=== PATIENT | male | born 1955 | race Caucasian/White ===

== ENCOUNTER 2018-04-13 09:42 | Emergency (ER) | payer OTHER ==
[~2018-04-13 09:42] MED LIST: CIP500 PO; HYDR473S4 PO; KET10 PO; NO RTN MEDS; PER PO
--- NOTE | 2018-04-13 09:44 | ER Report ---
History and Physical Time Seen By MD: 09:43 HPI/ROS CHIEF COMPLAINT: Right-sided abdominal and flank pain HISTORY OF PRESENT ILLNESS: Patient is a 62-year-old male who denies any significant past medical history other than multiple orthopedic surgeries. States that around midnight last night he was awakened from sleep with severe right-sided flank pain which would radiate to the right lower quadrant he states that movement seems to make the symptoms worse. He denies any nausea with onset of pain and nausea currently. He denies any fevers or chills. He states the pain severity currently is 8 out of 10 in intensity. It is made worse with motion better at rest. That there is any waxing or waning component to the pain but rather it is just constant. Patient denies any prior abdominal surgeries. He states that he normally sleeps in a lazy boy chair at nighttime because of chronic back pain and shoulder pain. He denies ever having similar episodes in the past. REVIEW OF SYSTEMS: Constitutional: No fever, no chills. Eyes: No discharge. ENT: No sore throat. Cardiovascular: No chest pain, no palpitations. Respiratory: No cough, no shortness of breath. Gastrointestinal: Right-sided flank and abdominal pain, no nausea no vomiting or diarrhea. Genitourinary: No hematuria. Musculoskeletal: No back pain. Skin: No rashes. Neurological: No headache. Allergies: Coded Allergies: erythromycin base (Verified Allergy, Mild, 07/25/14) Home Meds Active Scripts Hydrocodone Bit/Acetaminophen (HYDROCODON-ACETAMINOPHEN 5-325) 1 Each Tablet, 1 EACH PO Q4-6H Y for PAIN, #8 TAB 0 Refills TAKE ONE TABLET BY MOUTH EVERY 4-6 HOURS NEEDED FOR PAIN Prov:GONZALEZ CANSECO MD 04/13/18 Discontinued Reported Medications [No Rtn Meds] No Conflict Check, 0 Refills 03/12/10 Past Medical/Surgical History Patient reports multiple orthopedic surgeries but denies any medical history. Denies any chronic prescription medications. Hx Smoking: Yes Smoking Status: Current: Every Day Smoker Hx Substance Use Disorder: No Hx Alcohol Use: Yes (OCCASIONALLY) Constitutional Vital Sign - Last 24 Hours 04/13/18 04/13/18 04/13/18 04/13/18 09:49 09:49 10:00 10:12 Temp 97.7 Pulse 80 71 Resp 18 B/P (MAP) 153/101 153/101 (118) 152/97 (115) Pulse Ox 92 93 O2 Delivery Room Air 04/13/18 04/13/18 04/13/18 04/13/18 10:15 10:30 11:00 11:12 Pulse 73 B/P (MAP) 143/99 (114) 143/96 (112) 150/105 (120) Pulse Ox 92 04/13/18 04/13/18 04/13/18 04/13/18 11:15 11:30 11:35 11:40 Pulse 64 64 B/P (MAP) 156/100 (118) 153/105 (121) Pulse Ox 94 04/13/18 11:45 B/P (MAP) 144/89 (107) Physical Exam General Appearance: The patient is alert, has no immediate need for airway protection and no signs of toxicity. Eyes: Pupils equal and round no pallor or injection. ENT, Mouth: Mucous membranes are moist. Respiratory: There are no retractions, lungs are clear to auscultation. Cardiovascular: Regular rate and rhythm. Gastrointestinal: Abdomen is protuberant but soft and non tender, no masses, bowel sounds normal. She does have pain to the right flank to palpation and also with movement. Neurological: Patient is alert Skin: Warm and dry, no rashes. Musculoskeletal: Neck is supple non tender. Extremities are nontender, nonswollen and have full range of motion. Medical Decision Making Data Points Result Diagram: 04/13/18 0956 04/13/18 0956 Laboratory Hematology Test 04/13/18 09:56 Red Blood Count 5.16 M/uL (4.00-5.60) Mean Corpuscular Volume 95.9 fL (80.0-96.0) Mean Corpuscular Hemoglobin 34.4 pg (26.0-33.0) Mean Corpuscular Hemoglobin Concent 35.9 g/dL (32.0-36.0) Red Cell Distribution Width 13.8 % (11.5-14.5) Mean Platelet Volume 7.0 fL (7.2-11.1) Neutrophils (%) (Auto) 66.4 % (39.4-72.5) Lymphocytes (%) (Auto) 25.1 % (17.6-49.6) Monocytes (%) (Auto) 6.9 % (4.1-12.4) Eosinophils (%) (Auto) 0.8 % (0.4-6.7) Basophils (%) (Auto) 0.8 % (0.3-1.4) Nucleated RBC Relative Count (auto) 0.1 /100WBC Neutrophils # (Auto) 6.7 K/uL (2.0-7.4) Lymphocytes # (Auto) 2.5 K/uL (1.3-3.6) Monocytes # (Auto) 0.7 K/uL (0.3-1.0) Eosinophils # (Auto) 0.1 K/uL (0.0-0.5) Basophils # (Auto) 0.1 K/uL (0.0-0.1) Nucleated RBC Absolute Count (auto) 0.01 K/uL Urine Color Yellow Urine Clarity Clear Urine pH 6.0 pH (4.8-9.5) Urine Specific [place] 1.008 Urine Protein Negative mg/dL (NEGATIVE) Urine Glucose (UA) Negative mg/dL (NEGATIVE) Urine Ketones Negative mg/dL (NEGATIVE) Urine Blood Negative (NEGATIVE) Urine Nitrite Negative (NEGATIVE) Urine Bilirubin Negative (NEGATIVE) Urine Urobilinogen Negative mg/dL (0.2-1.9) Urine Leukocyte Esterase Trace (NEGATIVE) Urine RBC None /HPF (0-2/HPF) Urine WBC 1 /HPF (0-5/HPF) Urine Squamous Epithelial Cells None /LPF (</=FEW) Urine Bacteria Few /HPF (NONE-FEW) Urine Hyaline Casts Few /LPF (NONE-FEW) Urine Mucus None /HPF (NONE-FEW) Sodium Level 131 mmol/L (137-145) Potassium Level 4.3 mmol/L (3.5-5.0) Chloride Level 98 mmol/L (98-107) Carbon Dioxide Level 24 mmol/L (22-30) Blood Urea Nitrogen 11 mg/dl (9-21) Creatinine 0.80 mg/dl (0.66-1.25) Glomerular Filtration Rate Calc > 60.0 Random Glucose 92 mg/dl (75-110) Calcium Level 9.1 mg/dl (8.4-10.2) Total Bilirubin 0.8 mg/dl (0.2-1.3) Aspartate Amino Transf (AST/SGOT) 27 U/L (0-35) Alanine Aminotransferase (ALT/SGPT) 23 U/L (0-56) Alkaline Phosphatase 86 U/L (0-126) Total Protein 8.1 g/dl (6.3-8.2) Albumin 4.6 g/dl (3.5-5.0) Lipase 36 U/L (23-300) Chemistry Test 04/13/18 09:56 White Blood Count 10.1 k/uL (4.5-11.0) Red Blood Count 5.16 M/uL (4.00-5.60) Hemoglobin 17.8 g/dL (14.0-18.0) Hematocrit 49.5 % (42.0-52.0) Mean Corpuscular Volume 95.9 fL (80.0-96.0) Mean Corpuscular Hemoglobin 34.4 pg (26.0-33.0) Mean Corpuscular Hemoglobin Concent 35.9 g/dL (32.0-36.0) Red Cell Distribution Width 13.8 % (11.5-14.5) Platelet Count 347 K/uL (150-450) Mean Platelet Volume 7.0 fL (7.2-11.1) Neutrophils (%) (Auto) 66.4 % (39.4-72.5) Lymphocytes (%) (Auto) 25.1 % (17.6-49.6) Monocytes (%) (Auto) 6.9 % (4.1-12.4) Eosinophils (%) (Auto) 0.8 % (0.4-6.7) Basophils (%) (Auto) 0.8 % (0.3-1.4) Nucleated RBC Relative Count (auto) 0.1 /100WBC Neutrophils # (Auto) 6.7 K/uL (2.0-7.4) Lymphocytes # (Auto) 2.5 K/uL (1.3-3.6) Monocytes # (Auto) 0.7 K/uL (0.3-1.0) Eosinophils # (Auto) 0.1 K/uL (0.0-0.5) Basophils # (Auto) 0.1 K/uL (0.0-0.1) Nucleated RBC Absolute Count (auto) 0.01 K/uL Urine Color Yellow Urine Clarity Clear Urine pH 6.0 pH (4.8-9.5) Urine Specific [place] 1.008 Urine Protein Negative mg/dL (NEGATIVE) Urine Glucose (UA) Negative mg/dL (NEGATIVE) Urine Ketones Negative mg/dL (NEGATIVE) Urine Blood Negative (NEGATIVE) Urine Nitrite Negative (NEGATIVE) Urine Bilirubin Negative (NEGATIVE) Urine Urobilinogen Negative mg/dL (0.2-1.9) Urine Leukocyte Esterase Trace (NEGATIVE) Urine RBC None /HPF (0-2/HPF) Urine WBC 1 /HPF (0-5/HPF) Urine Squamous Epithelial Cells None /LPF (</=FEW) Urine Bacteria Few /HPF (NONE-FEW) Urine Hyaline Casts Few /LPF (NONE-FEW) Urine Mucus None /HPF (NONE-FEW) Glomerular Filtration Rate Calc > 60.0 Calcium Level 9.1 mg/dl (8.4-10.2) Total Bilirubin 0.8 mg/dl (0.2-1.3) Aspartate Amino Transf (AST/SGOT) 27 U/L (0-35) Alanine Aminotransferase (ALT/SGPT) 23 U/L (0-56) Alkaline Phosphatase 86 U/L (0-126) Total Protein 8.1 g/dl (6.3-8.2) Albumin 4.6 g/dl (3.5-5.0) Lipase 36 U/L (23-300) Urinalysis Test 04/13/18 09:56 Urine Color Yellow Urine Clarity Clear Urine pH 6.0 pH (4.8-9.5) Urine Specific [place] 1.008 Urine Protein Negative mg/dL (NEGATIVE) Urine Glucose (UA) Negative mg/dL (NEGATIVE) Urine Ketones Negative mg/dL (NEGATIVE) Urine Blood Negative (NEGATIVE) Urine Nitrite Negative (NEGATIVE) Urine Bilirubin Negative (NEGATIVE) Urine Urobilinogen Negative mg/dL (0.2-1.9) Urine Leukocyte Esterase Trace (NEGATIVE) Urine RBC None /HPF (0-2/HPF) Urine WBC 1 /HPF (0-5/HPF) Urine Squamous Epithelial Cells None /LPF (</=FEW) Urine Bacteria Few /HPF (NONE-FEW) Urine Hyaline Casts Few /LPF (NONE-FEW) Urine Mucus None /HPF (NONE-FEW) EKG/Imaging Imaging FACILITY: [facility] - [place] PATIENT NAME: Mike Vee : 1955 MR: [id number] V: [id number] EXAM DATE: [id number] ORDERING PHYSICIAN: GONZALEZ CANSECO TECHNOLOGIST: Location: [facility] - [place] Patient: Mike Vee : 1955 Visit/Account:[id number] Date of Sevice: 04/13/2018 Exam type: CHEST PA AND LAT History: Right flank pain Comparison: June 01, 2013. Findings: The lungs are free of acute effusions, infiltrates or edema. The cardiac silhouette is normal in size. There is mild prominence of the central pulmonary arteries although appears similar to the prior study. There are degenerative changes at both shoulder joints. IMPRESSION: 1. Mild prominence of central pulmonary arteries appear stable when compared the prior study No evidence of acute pulmonary consolidation Report Dictated By: Cassy Hill MD at 04/13/2018 11:11 AM Report E-Signed By: Cassy Hill MD at 04/13/2018 11:13 AM WSN:[email or web address] FACILITY: [facility] [place] PATIENT NAME: Mike Vee : 1955 MR: [id number] V: [id number] EXAM DATE: [id number] ORDERING PHYSICIAN: GONZALEZ CANSECO TECHNOLOGIST: Location: [facility] - [place] Patient: Mike Vee : 1955 Visit/Account:[id number] Date of Sevice: 04/13/2018 ABDOMEN/PELVIS WITH CONTRAST HISTORY: right side ab pain TECHNIQUE: Following administration of IV contrast contiguous axial images acquired through the abdomen/pelvis. Coronal and sagittal reformatting also performed. Dose Lowering Technique One of the following dose optimization techniques was utilized in the performance of this exam: Automated exposure control; adjustment of the mA and/ or kV according to the patient's size; or use of an iterative reconstruction technique. Specific details can be referenced in the facility's radiology CT exam operational policy. CONTRAST: 75 mL Isovue-370 COMPARISON: MR lumbar spine May 26, 2017 FINDINGS: Visualized lung bases: Negative. Hepatobiliary: Negative. Spleen: Negative. Adrenals: Negative. Pancreas: Negative. Kidneys ureters or bladder: Kidneys appear unremarkable. Urinary bladder is moderately distended with mild thickening of the bladder wall Genitalia: Prostate gland contains numerous coarse calcifications GI: There is diverticulosis left-sided colon although no CT evidence of acute diverticulitis. The appendix is visualized and does not appear inflamed . There Is a moderate amount fecal material seen in the right-sided colon. Vessels/spaces/nodes: There are moderate vascular calcifications present. No pathologic-appearing adenopathy is seen Bones/soft tissues: There are mild degenerative changes of the hip joints. There is a small well-circumscribed sclerotic density seen just above the right acetabulum likely representing a bone island. Post surgical changes and spondylotic changes L5-S1. There is mild compression fracture along superior endplate of L1 Additional findings: None pertinent. IMPRESSION: The appendix is visualized and does not appear inflamed. There is a moderate amount of fecal material seen in the right-sided the colon which may be related to constipation. No evidence of hydronephrosis or hydroureter Urinary bladder is moderately distended with mild thickening of the bladder wall. Mild compression fracture involving the superior endplate of L1 appears unchanged when compared to a prior MR of the lumbar spine from May 26, 2017 Additional chronic findings as described Report Dictated By: Cassy Hill MD at 04/13/2018 11:01 AM Report E-Signed By: Cassy Hill MD at 04/13/2018 11:11 AM WSN:[email or web address] ED Course/Re-evaluation Clinical Indication for ER IV: Hydration, IV Access ED Course 04/13/2018 10:16:20 am bedside ultrasound was performed which failed to demonstrate any right-sided hydronephrosis. Plan at this time will be CBC CMP lipase we will place an IV and give IV Toradol for pain. We'll also obtain a CT scan of the abdomen and pelvis with IV contrast. Re-evaluation 04/13/2018 11:30:16 am patient feeling improved at this time. Plan at this time will be discharged home patient given instructions to return if symptoms worsen, if he develops fever at any time or if he develops of blood or mucus in the stool. Decision to Disposition Date: Apr 13, 2018 Decision to Disposition Time: 11:27 Depart Departure Latest Vital Signs Vital Signs Date Time Temp Pulse Resp B/P (MAP) Pulse Ox O2 Delivery O2 Flow Rate FiO2 04/13/18 11:45 144/89 (107) 04/13/18 11:40 64 94 04/13/18 09:49 97.7 18 Room Air Impression: Primary Impression: Abdominal pain Condition: Improved Disposition: HOME OR SELF-CARE Referrals: MICKEY ELI (PCP) 2 Days if symptoms persist New Scripts Hydrocodone Bit/Acetaminophen (HYDROCODON-ACETAMINOPHEN 5-325) 1 Each Tablet 1 EACH PO Q4-6H Y for PAIN, #8 TAB 0 Refills TAKE ONE TABLET BY MOUTH EVERY 4-6 HOURS NEEDED FOR PAIN Prov: GONZALEZ CANSECO MD 04/13/18 Patient Instructions: Abdominal Pain (ED), Flank Pain (ED) Problem Qualifiers Primary Impression: Abdominal pain Abdominal location: right lower quadrant Qualified Codes: R10.31 - Right lower quadrant pain GONZALEZ CANSECO MD Apr 13, 2018 09:44
[2018-04-13] MEDS ORDERED: KETOROLAC 30 MG/ML VIAL IVP ONE (10:00)
[2018-04-13 10:08] LABS: PLATELET COUNT, AUTOMATED 347 K/uL (150-450)
[2018-04-13] MEDS ORDERED: fentaNYL CITR 100 MCG/2 ML AMP IVP ONE (10:35)
[2018-04-13] MEDS ORDERED: IOPAMIDOL 76% 75 ML INFUS BTL 75 ML ONE (10:36)
--- NOTE | 2018-04-13 11:16 | RADIOLOGY IMAGING REPORT ---
FACILITY: [facility] - [place] PATIENT NAME: Mike Vee : 1955 MR: [id number] V: [id number] EXAM DATE: ORDERING PHYSICIAN: GONZALEZ CANSECO TECHNOLOGIST: Location: [facility] - [place] Patient: Mike Vee : 1955 Visit/Account:[id number] Date of Sevice: 04/13/2018 ABDOMEN/PELVIS WITH CONTRAST HISTORY: right side ab pain TECHNIQUE: Following administration of IV contrast contiguous axial images acquired through the abdom en/pelvis. Coronal and sagittal reformatting also performed. Dose Lowering Technique One of the following dose optimization techniques was utilized in the performance of this exam: Autom ated exposure control; adjustment of the mA and/or kV according to the patient's size; or use of an i terative reconstruction technique. Specific details can be referenced in the facility's radiology C T exam operational policy. CONTRAST: 75 mL Isovue-370 COMPARISON: MR lumbar spine May 26, 2017 FINDINGS: Visualized lung bases: Negative. Hepatobiliary: Negative. Spleen: Negative. Adrenals: Negative. Pancreas: Negative. Kidneys ureters or bladder: Kidneys appear unremarkable. Urinary bladder is moderately distended wit h mild thickening of the bladder wall Genitalia: Prostate gland contains numerous coarse calcifications GI: There is diverticulosis left-sided colon although no CT evidence of acute diverticulitis. The a ppendix is visualized and does not appear inflamed . There Is a moderate amount fecal material see n in the right-sided colon. Vessels/spaces/nodes: There are moderate vascular calcifications present. No pathologic-appearing a denopathy is seen Bones/soft tissues: There are mild degenerative changes of the hip joints. There is a small well-ci rcumscribed sclerotic density seen just above the right acetabulum likely representing a bone island. Post surgical changes and spondylotic changes L5-S1. There is mild compression fracture along supe rior endplate of L1 Additional findings: None pertinent. IMPRESSION: The appendix is visualized and does not appear inflamed. There is a moderate amount of fecal materia l seen in the right-sided the colon which may be related to constipation. No evidence of hydronephrosis or hydroureter Urinary bladder is moderately distended with mild thickening of the bladder wall. Mild compression fracture involving the superior endplate of L1 appears unchanged when compared to a prior MR of the lumbar spine from May 26, 2017 Additional chronic findings as described Report Dictated By: Cassy Hill MD at 04/13/2018 11:01 AM Report E-Signed By: Cassy Hill MD at 04/13/2018 11:11 AM MIRI:CARLIN
--- NOTE | 2018-04-13 11:17 | RADIOLOGY IMAGING REPORT ---
FACILITY: [facility] PATIENT NAME: Mike Vee : 1955 MR: [id number] V: [id number] EXAM DATE: ORDERING PHYSICIAN: GONZALEZ CANSECO TECHNOLOGIST: Location: [facility] - [place] Patient: Mike Vee : 1955 Visit/Account:[id number] Date of Sevice: 04/13/2018 Exam type: CHEST PA AND LAT History: Right flank pain Comparison: June 01, 2013. Findings: The lungs are free of acute effusions, infiltrates or edema. The cardiac silhouette is normal in siz e. There is mild prominence of the central pulmonary arteries although appears similar to the prior study. There are degenerative changes at both shoulder joints. IMPRESSION: 1. Mild prominence of central pulmonary arteries appear stable when compared the prior study No evidence of acute pulmonary consolidation Report Dictated By: Cassy Hill MD at 04/13/2018 11:11 AM Report E-Signed By: Cassy Hill MD at 04/13/2018 11:13 AM WSN:[email or web address]
[2018-04-13] MEDS ORDERED: LOR5/325 PO (11:32)
[2018-04-13 11:45] VITALS: BP 144/89
== END 2018-04-13 11:50 | disposition home or self-care (01) ==
LOC: ER 09:47
DX: R10.31 Right lower quadrant pain (principal)
CPT/HCPCS: 71046; 74177; 81001; 83690; 85025; 96374; 96375; 99284; J1885; J3010; Q9967; 82040; 82247; 82310; 82374; 82435; 82565; 82947; 84075; 84132; 84155; 84295; 84450; 84460; 84520

== ENCOUNTER 2019-02-10 10:00 | Emergency (ER) | payer OTHER ==
[2019-02-10] MEDS ORDERED: NS(*) 0.9% 1000 ML BAG 1,000 ML IV ONE (10:18)
[2019-02-10] MEDS ORDERED: NALOXONE HCL 2 MG/2 ML SYR IVP ONE (10:20)
[2019-02-10] MEDS ORDERED: DEXTROSE 50% 50 ML SYR IVP ONE (10:20)
[2019-02-10] MEDS ORDERED: LEVOPHED KIT (*) 1 IVSOL 1 KIT IV ONE (10:24)
[2019-02-10 10:43] LABS: INR 1.19
--- NOTE | 2019-02-10 10:50 | RADIOLOGY IMAGING REPORT ---
FACILITY: [facility] PATIENT NAME: Mike Vee : 1955 MR: [id number] V: [id number] EXAM DATE: ORDERING PHYSICIAN: JEAN STALLWORTH TECHNOLOGIST: Location: [facility] Patient: Mike Vee : 1955 Visit/Account:[id number] Date of Sevice: 02/10/2019 CHEST SINGLE AP INDICATION: Chest Pain COMPARISON: None available FINDINGS: The patient has been intubated the endotracheal tube terminates approximately 2.6 cm above the jay jay . There is pulmonary hypoventilation with associated atelectasis. There is probable underlying chronic interstitial change. There is no pneumothorax or pleural effusion. The stomach is distended measuring upwards of 18 cm in diameter IMPRESSION: 1. The endotracheal tube appears appropriately positioned, however, there is severe gaseous gastric d istention and esophageal intubation is not excluded. Recommend clinical correlation. 2. Pulmonary hypoventilation associated atelectasis Results were discussed with JEAN STALLWORTH at 02/10/2019 10:47 AM. Report Dictated By: Héctor Montana at 02/10/2019 10:37 AM Report E-Signed By: Héctor Montana at 02/10/2019 10:47 AM WSN:[id number]
[2019-02-10 10:53] LABS: PLATELET COUNT, AUTOMATED 254 K/uL (150-450)
[2019-02-10] MEDS ORDERED: AMIODARONE(*) 150 MG/3 ML INJ 150 MG in DEXTROSE 5%(*) 100 ML BAG 100 ML IVPB ONE (11:05)
[2019-02-10] MEDS ORDERED: KETAMINE HCL-NS 50 MG/5 ML SYR ONE ×2 (11:07→11:11)
[2019-02-10] MEDS ORDERED: KETAMINE HCL 500 MG/5 ML VIAL IVP ONE (11:10)
[2019-02-10] MEDS ORDERED: AMIODARONE HCL 450 MG/9 ML 360 MG in D5W VISIV(*) 250 ML 242.8 ML IVPB ONE (11:30)
--- NOTE | 2019-02-10 11:40 | ER Report ---
History and Physical Time Seen By MD: 10:00 HPI/ROS CHIEF COMPLAINT: Unresponsive HISTORY OF PRESENT ILLNESS: Patient is a 64-year-old male named Checo Vee who was reportedly found unresponsive in his recliner, pulseless, apneic by the patient's . Patient reportedly went down stairs and turned on the TV and was found approximately 10 minutes later. EMS initiated CPR, administered epinephrine, administered one shock due to V. fib. Patient arrived in the emergency department pulseless, apneic, intubated with a 7.5 endotracheal tube. Family reports that the patient is not currently on medications, he is a smoker, denies further medical problems. REVIEW OF SYSTEMS: Unable to obtain due to patient's mental status Allergies: Coded Allergies: No Known Drug Allergies (Unverified , 02/10/19) Home Meds No Active Prescriptions or Reported Meds Constitutional Vital Sign - Last 24 Hours 02/10/19 02/10/19 10:40 13:30 Temp 97.5 FiO2 100.0 Physical Exam General Appearance: Intubated, unresponsive Eyes: Pupils fixed and dilated, nonreactive ENT, Mouth: Endotracheal tube in place Respiratory: Lung sounds bilaterally Cardiovascular: Pulseless Gastrointestinal: Abdomen is soft and non tender, no masses, bowel sounds normal. Neurological: No active movement Skin: Cool, pale without mottling Musculoskeletal: No obvious bony deformities DIFFERENTIAL DIAGNOSIS: After history and physical exam differential diagnosis was considered for respiratory arrest, myocardial infarction, cardiac tamponade, pneumothorax, sepsis, electrolyte abnormality, pulmonary embolism Medical Decision Making Data Points Result Diagram: 02/10/19 1008 02/10/19 1008 Laboratory Hematology Test 02/10/19 10:08 Red Blood Count 4.91 M/uL (4.00-5.60) Mean Corpuscular Volume 99.9 fL (80.0-96.0) Mean Corpuscular Hemoglobin 31.8 pg (26.0-33.0) Mean Corpuscular Hemoglobin Concent 31.8 g/dL (32.0-36.0) Red Cell Distribution Width 14.4 % (11.5-14.5) Mean Platelet Volume 8.3 fL (7.2-11.1) Neutrophils (%) (Auto) 47.9 % (39.4-72.5) Lymphocytes (%) (Auto) 39.8 % (17.6-49.6) Monocytes (%) (Auto) 10.1 % (4.1-12.4) Eosinophils (%) (Auto) 1.0 % (0.4-6.7) Basophils (%) (Auto) 1.2 % (0.3-1.4) Nucleated RBC Relative Count (auto) 0.2 /100WBC Neutrophils # (Auto) 6.0 K/uL (2.0-7.4) Lymphocytes # (Auto) 5.0 K/uL (1.3-3.6) Monocytes # (Auto) 1.3 K/uL (0.3-1.0) Eosinophils # (Auto) 0.1 K/uL (0.0-0.5) Basophils # (Auto) 0.2 K/uL (0.0-0.1) Nucleated RBC Absolute Count (auto) 0.02 K/uL Prothrombin Time 15.2 seconds (12.0-14.4) Prothromb Time International Ratio 1.19 Activated Partial Thromboplast Time 44 seconds (23-35) Sodium Level 143 mmol/L (137-145) Potassium Level 5.0 mmol/L (3.5-5.0) Chloride Level 107 mmol/L (98-107) Carbon Dioxide Level 14 mmol/L (22-30) Blood Urea Nitrogen 14 mg/dl (9-21) Creatinine 1.10 mg/dl (0.66-1.25) Glomerular Filtration Rate Calc > 60.0 Random Glucose 224 mg/dl (75-110) Calcium Level 9.7 mg/dl (8.4-10.2) Total Bilirubin 0.7 mg/dl (0.2-1.3) Aspartate Amino Transf (AST/SGOT) 110 U/L (0-35) Alanine Aminotransferase (ALT/SGPT) 84 U/L (0-56) Alkaline Phosphatase 104 U/L (0-126) Troponin I 5.730 ng/ml B-Type Natriuretic Peptide 255 pg/ml (0-100) Total Protein 6.8 g/dl (6.3-8.2) Albumin 3.9 g/dl (3.5-5.0) Chemistry Test 02/10/19 10:08 White Blood Count 12.5 k/uL (4.5-11.0) Red Blood Count 4.91 M/uL (4.00-5.60) Hemoglobin 15.6 g/dL (14.0-18.0) Hematocrit 49.1 % (42.0-52.0) Mean Corpuscular Volume 99.9 fL (80.0-96.0) Mean Corpuscular Hemoglobin 31.8 pg (26.0-33.0) Mean Corpuscular Hemoglobin Concent 31.8 g/dL (32.0-36.0) Red Cell Distribution Width 14.4 % (11.5-14.5) Platelet Count 254 K/uL (150-450) Mean Platelet Volume 8.3 fL (7.2-11.1) Neutrophils (%) (Auto) 47.9 % (39.4-72.5) Lymphocytes (%) (Auto) 39.8 % (17.6-49.6) Monocytes (%) (Auto) 10.1 % (4.1-12.4) Eosinophils (%) (Auto) 1.0 % (0.4-6.7) Basophils (%) (Auto) 1.2 % (0.3-1.4) Nucleated RBC Relative Count (auto) 0.2 /100WBC Neutrophils # (Auto) 6.0 K/uL (2.0-7.4) Lymphocytes # (Auto) 5.0 K/uL (1.3-3.6) Monocytes # (Auto) 1.3 K/uL (0.3-1.0) Eosinophils # (Auto) 0.1 K/uL (0.0-0.5) Basophils # (Auto) 0.2 K/uL (0.0-0.1) Nucleated RBC Absolute Count (auto) 0.02 K/uL Prothrombin Time 15.2 seconds (12.0-14.4) Prothromb Time International Ratio 1.19 Activated Partial Thromboplast Time 44 seconds (23-35) Glomerular Filtration Rate Calc > 60.0 Calcium Level 9.7 mg/dl (8.4-10.2) Total Bilirubin 0.7 mg/dl (0.2-1.3) Aspartate Amino Transf (AST/SGOT) 110 U/L (0-35) Alanine Aminotransferase (ALT/SGPT) 84 U/L (0-56) Alkaline Phosphatase 104 U/L (0-126) Troponin I 5.730 ng/ml B-Type Natriuretic Peptide 255 pg/ml (0-100) Total Protein 6.8 g/dl (6.3-8.2) Albumin 3.9 g/dl (3.5-5.0) Coagulation Test 02/10/19 10:08 Prothrombin Time 15.2 seconds Prothromb Time International Ratio 1.19 Activated Partial Thromboplast Time 44 seconds EKG/Imaging EKG Interpretation FACILITY: [facility] [place] PATIENT NAME: CHECO VEE : [id number] MR: [id number] V: [id number] EXAM DATE: ORDERING PHYSICIAN: JEAN STALLWORTH TECHNOLOGIST: Test Reason : code blue Blood Pressure : / mmHG Vent. Rate : 051 BPM Atrial Rate : 104 BPM P-R Int : 096 ms QRS Dur : 126 ms QT Int : 416 ms P-R-T Axes : -35 -60 106 degrees QTc Int : 383 ms Demand pacemaker, interpretation is based on intrinsic rhythm Unusual P axis, possible ectopic atrial tachycardia with 2nd degree AV block with occasional premature ventricular complexes Left axis deviation Right bundle branch block Inferior infarct , age undetermined Abnormal ECG No previous ECGs available Referred By: Confirmed By: Imaging PATIENT NAME: Zack Robles : 09/05/1954 MR: [id number] V: [id number] EXAM DATE: ORDERING PHYSICIAN: JEAN STALLWORTH TECHNOLOGIST: Location: [facility] [place] Patient: Zack Robles : 09/05/1954 Visit/Account:[id number] Date of Sevice: 02/10/2019 CHEST SINGLE AP INDICATION: Chest Pain COMPARISON: None available FINDINGS: The patient has been intubated the endotracheal tube terminates approximately 2.6 cm above the jay jay. There is pulmonary hypoventilation with associated atelectasis. There is probable underlying chronic interstitial change. There is no pneumothorax or pleural effusion. The stomach is distended measuring upwards of 18 cm in diameter IMPRESSION: 1. The endotracheal tube appears appropriately positioned, however, there is severe gaseous gastric distention and esophageal intubation is not excluded. Recommend clinical correlation. 2. Pulmonary hypoventilation associated atelectasis Results were discussed with JEAN STALLWORTH at 02/10/2019 10:47 AM. ED Course/Re-evaluation ED Course Patient is a 64-year-old male here after being found unresponsive, CPR in progress, 1 shock delivered in the field due to V. fib, 2 subsequent defibrillations in the emergency department with ROSC. Patient had received Narcan, IV fluid boluses, several rounds of epinephrine, D50, amiodarone with subsequent infusion, norepinephrine for pressor support. I contacted at [facility] [place] with cardiology who accepted the patient to [facility]. Patient was transported via helicopter to [facility] for further care and treatment. Of note, patient did have a troponin of 5.7. Patient had received atropine due to bradycardia. Please see nursing notes for further details on drug administration and timeline. Decision to Disposition Date: Feb 10, 2019 Decision to Disposition Time: 11:38 Depart Departure Latest Vital Signs Vital Signs Date Time Temp Pulse Resp B/P (MAP) Pulse Ox O2 Delivery O2 Flow Rate FiO2 02/10/19 13:30 97.5 02/10/19 10:40 100.0 Impression: Primary Impression: Cardiac arrest Condition: Improved ([facility]) Disposition: XFER TO [facility] New Scripts No Active Prescriptions or Reported Meds JEAN STALLWORTH DO Feb 10, 2019 11:40
--- NOTE | 2019-02-10 14:57 | EKG ---
FACILITY: [facility] - [place] PATIENT NAME: CHECO SALCIDO : [id number] MR: [id number] V: [id number] EXAM DATE: ORDERING PHYSICIAN: JEAN STALLWORTH TECHNOLOGIST: Test Reason : code blue Blood Pressure : / mmHG Vent. 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
== END 2019-02-10 11:33 | disposition short-term general hospital (02) ==
LOC: EDBD → ER 10:02 → MERGE 10:02 → ER 11:33
DX: I46.9 Cardiac arrest, cause unspecified (principal); R07.9 Chest pain, unspecified; I44.2 Atrioventricular block, complete
CPT/HCPCS: 71045; 83880; 84484; 85025; 85610; 85730; 93005; 99285; C1758; J0171; J0282; J0461; J2310; J3490; 82040; 82247; 82310; 82374; 82435; 82565; 82947; 84075; 84132; 84155; 84295; 84450; 84460; 84520; 94002

== ENCOUNTER → 2019-02-10 | Outpatient (CLI) | payer OTHER ==
[~2019-02-10] MED LIST changes: +LOR5/325 PO
== END ==
LOC: AMB 09:44
PROVIDERS: ATTEND Nurse Practitioner
DX: I46.9 Cardiac arrest, cause unspecified (principal)
CPT/HCPCS: A0425; A0433

== ENCOUNTER → 2019-02-10 | Outpatient (REF) | LOC: AMB 10:55 | PROVIDERS: ATTEND Nurse Practitioner | DX: Z02.9 Encounter for administrative examinations, unspecified (principal) ==